=== PATIENT | male | born 1950 | race Caucasian/White ===

== ENCOUNTER 2017-06-11 05:32 | Outpatient (CLI) | payer MEDICARE ==
[~2017-06-11] VITALS: Ht 167.6 cm; Wt 141.1 kg
[2017-06-11] MEDS ORDERED: LOSA1TAB23 PO (10:18)
[2017-06-11] MEDS ORDERED: POTA-51 PO ×3 (10:18)
[2017-06-11] MEDS ORDERED: CHOL5000 PO (10:18)
[2017-06-11] MEDS ORDERED: ASPI-999 PO (10:18)
[2017-06-11] MEDS ORDERED: ISOS30TA3 PO (10:18)
[2017-06-11] MEDS ORDERED: SERT50TA9 PO (10:18)
[2017-06-11] MEDS ORDERED: LORA1TAB PO (10:18)
[2017-06-11] MEDS ORDERED: AMLO10TA2 PO (10:18)
[2017-06-11] MEDS ORDERED: HYDR-3923 PO (10:18)
[2017-06-11] MEDS ORDERED: METF750T2 PO (10:18)
[2017-06-11] MEDS ORDERED: DIVA500T7 PO (10:18)
[2017-06-11] MEDS ORDERED: ATOR20TA66 PO (10:18)
[2017-06-11] MEDS ORDERED: ZOLP10TA5 PO (10:18)
== END 2017-06-11 10:43 ==
LOC: PREOP 05:32
PROVIDERS: ATTEND Otolaryngology Otolaryngology/Facial Plastic Surgery
DX: Z01.818 Encounter for other preprocedural examination (principal); C44.321 Squamous cell carcinoma of skin of nose

== ENCOUNTER 2017-06-20 07:44 | Day surgery (SDC) | payer MEDICARE, OTHER ==
[~2017-06-20] VITALS: Ht 167.6 cm; Wt 141.1 kg
[~2017-06-20 07:44] MED LIST: AMLO10TA2 PO; ASPI-999 PO; ATOR20TA66 PO; CHOL5000 PO; DIVA500T7 PO; HYDR-3923 PO; ISOS30TA3 PO; LORA1TAB PO; LOSA1TAB23 PO; METF750T2 PO; POTA-51 PO; SERT50TA9 PO; ZOLP10TA5 PO
[2017-06-20 08:15] VITALS: BP 162/87
[2017-06-20] MEDS: LACTATED RINGERS 1,000 ML IV PRN ×2 (09:00→11:20)
[2017-06-20] MEDS ORDERED: LACTATED RINGERS 1,000 ML IV PRN (09:09)
[2017-06-20] MEDS ORDERED: FAMOTIDINE 20MG/2ML IV (PEPCID) IV ONE (09:15)
--- NOTE | 2017-06-20 09:49 | Progress Note-Pre Operative ---
Pre-Operative Progress Note H&P Reviewed The H&P was reviewed, patient examined and no changes noted. Date Seen by Provider: Jun 20, 2017 Time Seen by Provider: 09:45 Date H&P Reviewed: Jun 20, 2017 Time H&P Reviewed: 09:45 Pre-Operative Diagnosis: Large Nasal Dorsum Lesion HARRISON PILLAI MD Jun 20, 2017 9:48 am
[2017-06-20] MEDS ORDERED: MUPIROCIN 2% OINT 22 GM (BACTROBAN) TUBE ONE (10:09)
[2017-06-20] MEDS ORDERED: LIDOCAINE/EPI 1%-1:200,000 (XYLOCAINE) 10 ML VIAL ONE (10:09)
[2017-06-20] MEDS ORDERED: fentaNYL INJECTION 100 MCG/2 ML AMP ONE ×2 (10:50→11:53)
[2017-06-20] MEDS ORDERED: MIDAZOLAM 2 MG/2 ML (VERSED) VIAL ONE (10:50)
[2017-06-20] MEDS ORDERED: ONDANSETRON 4 MG/2 ML (SDV) Z0FRAN ONE (10:50)
[2017-06-20] MEDS ORDERED: proPOfol 200 MG/20 ML (DIPRIVAN) VIAL IV ONE (10:50)
[2017-06-20] MEDS ORDERED: LIDOCAINE PF 2% 5 ML (XYLOCAINE) VIAL ONE (10:50)
[2017-06-20] MEDS ORDERED: BSS 15 ML ONE (11:15)
[2017-06-20] MEDS ORDERED: SEVOFLURANE (ULTANE) 15 ML INHAL SOLN ONE ×4 (11:20→12:05)
[2017-06-20] MEDS ORDERED: LIDOCAINE/EPI 1%-1:200,000 (XYLOCAINE) 10 ML VIAL INJ ONE (11:30)
--- NOTE | 2017-06-20 12:05 | Progress Note-Post Operative ---
Post-Operative Progess Note Surgeon (s)/[employer] Captain (s) Surgeon HARRISON PILLAI MD [employer] Captain n/a Pre-Operative Diagnosis Large Nasal Dorsum Lesion Post-Operative Diagnosis same Post-Op Procedure Note Date of Procedure: Jun 20, 2017 Name of Procedure Performed: Excision of Nasal Drosum Lesion REconsturction with full thickness skin Graft-Donor site Left Neck Description & Findings Description and Findings: n/a Anesthesia Type lma Estimated Blood Loss minimal Packing none. Specimen(s) collected/removed nasal dorsum lesion -frozen basal suzy lwith clear margins HARRISON PILLAI MD Jun 20, 2017 12:05 pm
[2017-06-20] MEDS ORDERED: morphine INJ 10 MG/ML 1ML (SYR OR VIAL) IVP PRN (12:15)
[2017-06-20] MEDS ORDERED: HYDROmorphone (DILAUDID) 2 MG/ML VIAL IVP PRN (12:15)
[2017-06-20] MEDS ORDERED: ONDANSETRON 4 MG/2 ML (SDV) Z0FRAN IVP PRN (12:15)
[2017-06-20] MEDS ORDERED: MEPERIDINE (DEMEROL) INJ 50 MG/ML IVP PRN (12:15)
[2017-06-20] MEDS ORDERED: HYDROcodone/APAP 5 MG/325 MG (LORTAB) TAB PO PRN (12:15)
[2017-06-20] MEDS ORDERED: ACETAMINOPHEN 325 MG TABLET/CAPLET (TYLENOL) PO PRN (12:15)
[2017-06-20 13:10] VITALS: BP 138/71
[2017-06-20 13:40] VITALS: BP 134/75
[2017-06-20] MEDS ORDERED: HYDR-3812 PO (13:41)
[2017-06-20] MEDS ORDERED: CEPH-507 PO (13:41)
[2017-06-20 14:10] VITALS: BP 139/73
[2017-06-20 14:45] VITALS: BP 139/73
[2017-06-20] MEDS ORDERED: MUPIROCIN 2% OINT 22 GM (BACTROBAN) TUBE TOP SCH (21:00)
== END 2017-06-20 15:00 | disposition home or self-care (01) ==
LOC: SDC 07:44
PROVIDERS: ATTEND Otolaryngology Otolaryngology/Facial Plastic Surgery
DX: C44.311 Basal cell carcinoma of skin of nose (principal); I10 Essential (primary) hypertension; G47.33 Obstructive sleep apnea (adult) (pediatric); E11.9 Type 2 diabetes mellitus without complications; F32.9 Major depressive disorder, single episode, unspecified; F41.9 Anxiety disorder, unspecified; Z80.42 Family history of malignant neoplasm of prostate; Z79.82 Long term (current) use of aspirin; Z79.84 Long term (current) use of oral hypoglycemic drugs; Z79.899 Other long term (current) drug therapy
CPT/HCPCS: 82962; 87081